=== PATIENT | male | born 1960 | race Caucasian/White ===

== ENCOUNTER 2016-08-13 12:48 | Emergency (ER) | payer BC ==
--- NOTE | 2016-08-13 13:21 | ER Document Report ---
ED Medical Screen (RME) - General TRAVEL OUTSIDE OF THE [place] IN LAST 30 DAYS: No - General Chief Complaint: Vertigo Stated Complaint: DIZZY Notes: Patient is a 55 year old male presenting to the ED for a vertigo episode. Patients symptoms of dizziness and nauseas were onset at 11:00 this morning. Patient states he has had increased episodes of vertigo since February. Patient states he also has menieres disease and he was being treated for this by a ENT. Patient states he received a shot in his left ear and prednisone from his ENT. Patients primary care physician is Светлана Taylor at [facility]. Patient states he takes meclizine for his vertigo. (JANE HARVEY) - Related Data Allergies/Adverse Reactions: No Known Allergies Allergy (Verified 08/13/16 13:07) Past Medical History Renal/ Medical History: Denies: Hx Peritoneal Dialysis Course - Re-evaluation Re-evalutation: 08/13/16 13:23 Patient presents emergency department he has a history of vertigo and Mnire's disease. He says that he sees an outlying ENT. He also sees a specialist in [place] had an episode today of dizziness vomiting took one Antivert without relief. On examination he is moving around frequently saying he feels like his [place] in the room is spinning. He has no vertical nystagmus or neurological deficits he has a GCS of 15 is moving all 4 extremities with normal neurological examination. Heart lungs abdomen are soft. When ahead and started him on 50 of Antivert and 8 of Zofran. He will be transferred to the back for further assessment and evaluation. 08/13/16 13:25 I personally performed the services described in the documentation reviewed the documentation recorded by my scribe in my presence and it accurately and completely records my words and actions (ОЛЕГ IQBAL) - Vital Signs Vital signs: Temp Pulse Resp BP Pulse Ox 97.4 F 74 14 115/50 L 100 08/13/16 12:56 08/13/16 12:56 08/13/16 12:56 08/13/16 12:56 08/13/16 12:56
[2016-08-13] MEDS ORDERED: MECLIZINE HCL 25 MG TABLET PO ONE (13:24)
[2016-08-13] MEDS ORDERED: ONDANSETRON HCL INJ/PF 4 MG/2 ML SDV IV ONE (13:25)
--- NOTE | 2016-08-13 14:32 | ER Document Report ---
ED General - General Chief Complaint: Vertigo Stated Complaint: DIZZY Time seen by provider: 14:31 Mode of Arrival: Ambulatory Information source: Patient TRAVEL OUTSIDE OF THE [place] IN LAST 30 DAYS: No - HPI Notes: Patient is a 55 year old male presenting to the ED for a vertigo episode. Patients symptoms of dizziness and nauseas were onset at 11:00 this morning after turning his head to the side. This is a similar presentation to previous episodes of vertigo. Patient states he has had increased episodes of vertigo since February 2016. Patient states he also has menieres disease and he was being treated for this by a ENT. Patient states he received a shot in his left ear just over a month ago and last finished prednisone 1 week ago given from his ENT. Patients primary care physician is Светлана Taylor at [facility]. Patient states he takes meclizine for his vertigo. Patient initially was given 8 of Zofran and 50 of meclizine upon initial arrival to the emergency department. Patient reports he was nauseated and vomited 5 times without blood after the onset of vertigo today. The patient states this is similar to his previous episodes of vertigo. Patient reports last MRI and CT scan of the head was in 2000 for the same symptoms. Medications Zofran meclizine Synthroid triamterene Nasonex Carbamazepine Flexeril - Related Data Allergies/Adverse Reactions: No Known Allergies Allergy (Verified 08/13/16 13:07) Past Medical History - General Information source: Patient - Social History Smoking Status: Never Smoker Cigarette use (# per day): No Frequency of alcohol use: None Drug Abuse: None Lives with: Alone Family History: Reviewed & Not Pertinent Patient has suicidal ideation: No Patient has homicidal ideation: No Renal/ Medical History: Denies: Hx Peritoneal Dialysis Review of Systems - Review of Systems Notes: REVIEW OF SYSTEMS: CONSTITUTIONAL : Denies fever, chills, or sweats. Denies recent illness. EENT: Denies eye, ear, throat, or mouth pain or symptoms. Denies nasal or sinus congestion or discharge. Denies throat, tongue, or mouth swelling or difficulty swallowing. CARDIOVASCULAR: Denies chest pain. Denies palpitations or racing or irregular heart beat. Denies ankle edema. RESPIRATORY: Denies cough, cold, or chest congestion. Denies shortness of breath, difficulty breathing, or wheezing. GASTROINTESTINAL: Denies abdominal pain or distention. Denies diarrhea. Denies blood in vomitus, stools, or per rectum. Denies black, tarry stools. Denies constipation. GENITOURINARY: Denies difficulty urinating, painful urination, burning, frequency, blood in urine, or discharge. MUSCULOSKELETAL: Denies back or neck pain or stiffness. Denies joint pain or swelling. SKIN: Denies rash, lesions or sores. HEMATOLOGIC : Denies easy bruising or bleeding. LYMPHATIC: Denies swollen, enlarged glands. NEUROLOGICAL: Denies confusion or altered mental status. Denies passing out or loss of consciousness. Denies headache. Denies weakness or paralysis or loss of use of either side. Denies problems with gait or speech. Denies sensory loss, numbness, or tingling. Denies seizures. Patient reports room spinning sensation that Center med consistent with previous history of vertigo. PSYCHIATRIC: Denies anxiety or stress. Denies depression, suicidal ideation, or homicidal ideation. ALL OTHER SYSTEMS REVIEWED AND NEGATIVE. Dictation was performed using trippiece voice recognition software Physical Exam - Vital signs Vitals: Temp Pulse Resp BP Pulse Ox 97.4 F 74 14 115/50 L 100 08/13/16 12:56 08/13/16 12:56 08/13/16 12:56 08/13/16 12:56 08/13/16 12:56 - Notes Notes: PHYSICAL EXAMINATION: GENERAL: Well-appearing, well-nourished and in no acute distress. HEAD: Atraumatic, normocephalic. EYES: Pupils equal round and reactive to light, extraocular movements intact, sclera anicteric, conjunctiva are normal. ENT: Nares patent, oropharynx clear without exudates. Moist mucous membranes. Tympanic membranes bilaterally show minimal amount of clear fluid. Gross hearing is intact, although this patient states his hearing is slightly diminished on the left. NECK: Normal range of motion, supple without lymphadenopathy LUNGS: Breath sounds clear to auscultation bilaterally and equal. No wheezes rales or rhonchi. HEART: Regular rate and rhythm without murmurs ABDOMEN: Soft, nontender, nondistended abdomen. No guarding, no rebound. No masses appreciated. Musculoskeletal: Normal range of motion, no pitting or edema. No cyanosis. NEUROLOGICAL: Cranial nerves grossly intact. Normal speech, normal gait. Normal sensory, motor exams. Patient does have unidirectional lateral nystagmus that fatigues, reproduction on lateral rotation of the head with reproduction of symptoms. PSYCH: Normal mood, normal affect. SKIN: Warm, Dry, normal turgor, no rashes or lesions noted. Course - Re-evaluation Re-evalutation: 08/13/16 17:05 After meclizine, Zofran, Valium and Solu-Medrol, the patient had adequate relief of his vertigo sensation and nausea and felt stable for discharge. No suggestion for central vertigo. Symptoms fit more so with a peripheral vertigo consistent with the patient's previous history. No significant electrolyte imbalance. No suggestion for cardiac etiology or CVA or TIA. Patient will follow-up with his regular practitioner, and it is recommended that the patient be treated with medications to help with allergic component, potassium replacement, and breakthrough Phenergan for nausea and Valium for vertigo sensation. Does recommended patient has a repeat MRI scan done as in 16 years since his last one. Patient was able to ambulate prior to discharge. His given one dose of potassium. 08/13/16 17:07 - Vital Signs Vital signs: Temp Pulse Resp BP Pulse Ox 97.4 F 74 14 115/50 L 100 08/13/16 12:56 08/13/16 12:56 08/13/16 12:56 08/13/16 12:56 08/13/16 12:56 - Laboratory Result Diagrams: 08/13/16 15:30 08/13/16 15:30 Laboratory results interpreted by me: 08/13/16 08/13/16 15:30 15:30 RBC 4.16 L MCH 34.7 H Seg Neutrophils % 89.8 H Lymphocytes % 5.5 L Absolute Neutrophils 9.5 H Potassium 3.5 L BUN 22 H Discharge - Discharge Clinical Impression: Vertigo, Hypokalemia, Dehydration Vomiting Qualifiers: Vomiting type: unspecified Vomiting Intractability: non-intractable Nausea presence: with nausea Qualified Code(s): R11.2 - Nausea with vomiting, unspecified Condition: Stable Disposition: HOME, SELF-CARE Instructions: Antinausea Medication ([facility]), Intravenous (IV) Fluids ([facility]), Vomiting ([facility]), Vertigo ([facility]) Additional Instructions: Drink plenty of fluids. Stand up slowly. You need a follow-up MRI of the brain to evaluate for cause of vertigo, as your last imaging study was in 2000. Use meclizine primarily for vertigo, add in Valium for continued vertigo. Use Zofran primarily for nausea, add in Phenergan for continued nausea. Take 1 potassium tablet daily due to your low potassium level. Take the prednisone steroid taper as instructed. Take cetirizine daily for any allergic rhinitis or seasonal allergy symptoms. Prescriptions: Promethazine HCl [Phenergan 25 mg Tablet] 25 mg PO Q6HP PRN #14 tablet PRN Reason: Cetirizine HCl [All Day Allergy] 10 mg PO DAILY #60 capsule Diazepam [Valium 5 mg Tablet] 5 mg PO QIDP PRN #20 tablet PRN Reason: Potassium Chloride 10 meq PO DAILY #60 tab.[id number].sr Prednisone [Deltasone 10 mg Tablet] 10 mg PO ASDIR PRN #21 tablet PRN Reason: Forms: Return to Work Referrals: LORETO TAYLOR MD [NO LOCAL MD] - Follow up as needed
[2016-08-13] MEDS ORDERED: NORMAL SALINE 1000 ML 1,000 ML IV ONE (15:00)
[2016-08-13] MEDS ORDERED: DIAZEPAM INJ 10 MG/2 ML DISP.SYRIN IV ONE (15:00)
[2016-08-13] MEDS ORDERED: METHYLPREDNISOLONE INJ 125 MG/2 ML SDV IV ONE (15:21)
[2016-08-13 15:41] LABS: ABSOLUTE LYMPHOCYTES (AUTO) 0.6 10^3/uL (0.5-4.7); ABSOLUTE MONOCYTES (AUTO) 0.4 10^3/uL (0.1-1.4); ABSOLUTE NEUT (AUTO) 9.5 10^3/uL (1.7-8.2); BASOPHILS % (AUTO) 0.3 % (0-2); EOSINOPHILS % (AUTO) 0.2 % (0-6); HEMATOCRIT 40.4 % (37.9-51.0); HEMOGLOBIN 14.4 g/dL (13.5-17.0); HGB HCT DIFFERENCE 2.8; LYMPHOCYTES % (AUTO) 5.5 % (13-45); MEAN CORPUSCULAR HEMOGLOBIN 34.7 pg (27.0-33.4); MEAN CORPUSCULAR HGB CONC 35.7 g/dL (32.0-36.0); MEAN CORPUSCULAR VOLUME 97 fl (80-97); MONOCYTES % (AUTO) 4.2 % (3-13); RED BLOOD COUNT 4.16 10^6/uL (4.35-5.55); RED CELL DISTRIBUTION WIDTH 13.1 % (11.5-14.0); SEGMENTED NEUTROPHILS % (AUTO) 89.8 % (42-78); WHITE BLOOD COUNT 10.5 10^3/uL (4.0-10.5)
[2016-08-13 15:56] LABS: ALANINE AMINOTRANSFERASE 46 U/L (21-72); ALKALINE PHOSPHATASE 91 U/L (38-126); ANION GAP 12 (5-19); ASPARTATE AMINO TRANSFERASE 33 U/L (17-59); BILIRUBIN,DIRECT 0.1 mg/dL (0.0-0.4); BILIRUBIN,TOTAL 0.8 mg/dL (0.2-1.3); BLOOD UREA NITROGEN 22 mg/dL (7-20); CALCIUM 9.3 mg/dL (8.4-10.2); CARBON DIOXIDE 25 mmol/L (22-30); CHLORIDE 105 mmol/L (98-107); CREATININE RESULT 0.95 mg/dL (0.52-1.25); GLUCOSE 108 mg/dL (75-110); MAGNESIUM 1.9 mg/dL (1.6-2.3); POTASSIUM 3.5 mmol/L (3.6-5.0); SODIUM 142.3 mmol/L (137-145); TOTAL PROTEIN 6.5 g/dL (6.3-8.2)
[2016-08-13 16:31] LABS: THYROID STIMULATING HORMONE 2.51 uIU/mL (0.47-4.68)
[2016-08-13] MEDS ORDERED: POTASSIUM CHLORIDE 10 MEQ TABLET.SA PO ONE (16:53)
[2016-08-13 18:01] VITALS: BP 108/63
== END 2016-08-13 17:55 | disposition home or self-care (01) ==
LOC: ER 12:48
DX: R42 Dizziness and giddiness (principal); E87.6 Hypokalemia; E86.0 Dehydration; R11.2 Nausea with vomiting, unspecified
CPT/HCPCS: 99284; 96361; 96374; 96375; 36415; 84439; 83735; 84443; 85025; 80053; J3360; J2930; J2405; J7030